=== PATIENT | male | born 1930 | race Caucasian/White ===

== ENCOUNTER 2018-12-17 16:48 | Emergency (ER) | payer MEDICARE, BC ==
[2018-12-17] MEDS ORDERED: Sodium Chloride 0.9% 10 ML Syringe FLUSH PRN (17:46)
[2018-12-17] MEDS ORDERED: Ketorolac 30 MG/ML SDV IVPUSH ONE (17:47)
--- NOTE | 2018-12-17 17:51 | EDM.PDOC ---
ED HPI GENERAL MEDICAL PROBLEM - General Chief Complaint: Lower Extremity Injury/Pain Stated Complaint: MEDICAL [facility]IA [facility] Time Seen by Provider: 12/17/18 17:41 Source of Information: Reports: Patient, Family, RN Notes Reviewed History Limitations: Reports: No Limitations - History of Present Illness INITIAL COMMENTS - FREE TEXT/NARRATIVE: 88-year-old gentleman presents to the emergency department today with complaint of right knee pain, he states he does have a history gout pain has gotten worse over the last 24 hours. His family do give me a slightly different story states he has gotten weaker over the last couple days had difficulty getting into bed last night and spent a portion of the night on his knees next to the bed and then finally slept on the floor until he was found this afternoon and transported by EMS services to the emergency department Right Leg Pain Score (Numeric/FACES): 5 - Related Data Allergies Allergy/AdvReac Type Severity Reaction Status Date / Time No Known Allergies Allergy Verified 12/17/18 16:51 Home Meds: Home Meds Allopurinol [Zyloprim] 100 mg PO DAILY 12/17/18 [History] Finasteride [Proscar] 5 mg PO DAILY 12/17/18 [History] Furosemide [Lasix] 20 mg PO DAILY 12/17/18 [History] Lisinopril 10 mg PO DAILY 12/17/18 [History] Omeprazole 20 mg PO BEDTIME 12/17/18 [History] Pindolol 20 mg PO BID 12/17/18 [History] Pravastatin [Pravachol] 80 mg PO DAILY 12/17/18 [History] Warfarin [Coumadin] 2.5 mg PO ASDIRECTED 12/17/18 [History] Past Medical History HEENT History: Reports: Hard of Hearing, Impaired Vision Cardiovascular History: Reports: Afib, CAD, High Cholesterol, Hypertension, [place] Gastrointestinal History: Reports: GERD Genitourinary History: Reports: Urinary Incontinence Musculoskeletal History: Reports: Gout, Other (See Below) Endocrine/Metabolic History: Reports: Obesity/BMI 30+ Oncologic (Cancer) History: Reports: Basal Cell Carcinoma, Squamous Cell Carcinoma - Past Surgical History Head Surgeries/Procedures: Reports: None HEENT Surgical History: Reports: Cataract Surgery Cardiovascular Surgical History: Reports: Coronary Artery Bypass GI Surgical History: Reports: Cholecystectomy Endocrine Surgical History: Reports: None Musculoskeletal Surgical History: Reports: Hip Replacement Social & Family History - Tobacco Use Smoking Status *Q: Never Smoker Second Hand Smoke Exposure: No - Caffeine Use Caffeine Use: Reports: Coffee - Recreational Drug Use Recreational Drug Use: No Review of Systems - Review of Systems Review Of Systems: See Below Constitutional: Reports: No Symptoms Respiratory: Reports: No Symptoms Cardiovascular: Reports: No Symptoms GI/Abdominal: Reports: No Symptoms Genitourinary: Reports: No Symptoms (Knee pain) Musculoskeletal: Reports: Joint Pain Skin: Reports: No Symptoms Neurological: Reports: No Symptoms ED EXAM, GENERAL - Physical Exam Exam: See Below Free Text/Narrative:: He is tender to palpation over the right hip, will not tolerate any exam to the right knee it is warm to the touch compared to the left knee he does have +2 pitting edema bilaterally however this is a not uncommon Exam Limited By: No Limitations General Appearance: Alert, WD/WN, No Apparent Distress Head: Atraumatic, Normocephalic Neck: Normal Inspection, Supple, Non-Tender, Full Range of Motion Respiratory/Chest: No Respiratory Distress, Lungs Clear, Normal Breath Sounds, No Accessory Muscle Use, Chest Non-Tender Cardiovascular: Regular Rate, Rhythm, No Murmur GI/Abdominal: Soft, Non-Tender Course - Vital Signs Last Recorded V/S: Last Vital Signs Temp 98.7 F 12/17/18 19:21 Pulse 91 12/17/18 19:43 Resp 17 12/17/18 19:21 BP 156/88 H 12/17/18 20:35 Pulse Ox 95 12/17/18 19:43 - Orders/Labs/Meds Labs: Laboratory Tests 12/17/18 12/17/18 12/17/18 Range/Units 18:05 18:05 18:05 WBC 10.0 (4.5-11.0) K/uL RBC 4.60 (4.30-5.90) M/uL Hgb 14.1 (12.0-15.0) g/dL Hct 43.9 (40.0-54.0) % MCV 95 (80-98) fL MCH 31 (27-31) pg MCHC 32 (32-36) % Plt Count 197 (150-400) K/uL Neut % (Auto) 69 H (36-66) % Lymph % (Auto) 17 L (24-44) % [place] % (Auto) 13 H (2-6) % Eos % (Auto) 0 L (2-4) % Baso % (Auto) 0 (0-1) % PT (9.5-12.0) sec INR (0.80-1.20) Sodium 140 (140-148) mmol/L Potassium 4.2 (3.6-5.2) mmol/L Chloride 102 (100-108) mmol/L Carbon Dioxide 28 (21-32) mmol/L Anion Gap 10.4 (5.0-14.0) mmol/L BUN 23 H (7-18) mg/dL Creatinine 1.2 (0.8-1.3) mg/dL Est Cr Clr Drug Dosing 41.96 mL/min Estimated GFR (MDRD) 57 L (>60) Glucose 140 H (74-106) mg/dL Lactic Acid 2.6 H (0.4-2.0) mmol/L Uric Acid (3.5-7.2) mg/dL Calcium 9.4 (8.5-10.1) mg/dL Total Bilirubin 1.6 H (0.2-1.0) mg/dL AST 60 H (15-37) U/L ALT 27 (12-78) U/L Alkaline Phosphatase 68 (46-116) U/L Creatine Kinase (39-308) U/L Troponin I 0.046 (0.000-0.056) ng/mL Total Protein 7.2 (6.4-8.2) g/dL Albumin 3.6 (3.4-5.0) g/dL Globulin 3.6 H (2.3-3.5) g/dL Albumin/Globulin Ratio 1.0 L (1.2-2.2) 12/17/18 12/17/18 12/17/18 Range/Units 18:05 18:05 18:05 WBC (4.5-11.0) K/uL RBC (4.30-5.90) M/uL Hgb (12.0-15.0) g/dL Hct (40.0-54.0) % MCV (80-98) fL MCH (27-31) pg MCHC (32-36) % Plt Count (150-400) K/uL Neut % (Auto) (36-66) % Lymph % (Auto) (24-44) % [place] % (Auto) (2-6) % Eos % (Auto) (2-4) % Baso % (Auto) (0-1) % PT 21.6 H (9.5-12.0) sec INR 2.04 H (0.80-1.20) Sodium (140-148) mmol/L Potassium (3.6-5.2) mmol/L Chloride (100-108) mmol/L Carbon Dioxide (21-32) mmol/L Anion Gap (5.0-14.0) mmol/L BUN (7-18) mg/dL Creatinine (0.8-1.3) mg/dL Est Cr Clr Drug Dosing mL/min Estimated GFR (MDRD) (>60) Glucose (74-106) mg/dL Lactic Acid (0.4-2.0) mmol/L Uric Acid 7.9 H (3.5-7.2) mg/dL Calcium (8.5-10.1) mg/dL Total Bilirubin (0.2-1.0) mg/dL AST (15-37) U/L ALT (12-78) U/L Alkaline Phosphatase (46-116) U/L Creatine Kinase 1633 H (39-308) U/L Troponin I (0.000-0.056) ng/mL Total Protein (6.4-8.2) g/dL Albumin (3.4-5.0) g/dL Globulin (2.3-3.5) g/dL Albumin/Globulin Ratio (1.2-2.2) Meds: Medications Discontinued Medications Generic Name Dose Route Start Last Admin Trade Name Freq PRN Reason Stop Dose Admin Lactated Ringer's 1,000 mls @ 500 mls/hr 12/17/18 18:00 12/17/18 18:02 Ringers, Lactated IV 500 mls/hr ASDIRECTED OMID Administration Ketorolac Tromethamine 15 mg 12/17/18 17:47 12/17/18 18:29 Toradol IVPUSH 12/17/18 17:48 15 mg ONETIME ONE Administration Sodium Chloride 10 ml 12/17/18 17:46 12/17/18 18:02 Saline Flush FLUSH 10 ml ASDIRECTED PRN Administration Keep Vein Open Departure - Departure Time of Disposition: 07:07 Disposition: DC/Tfer to Acute Hospital 02 Condition: Poor Clinical Impression: Weakness - Discharge Information Referrals: Jett Cline MD [Primary Care Provider] - Forms: ED Department Discharge
[2018-12-17] MEDS ORDERED: Lactated Ringers 1,000 ML IV SCH (18:00)
--- NOTE | 2018-12-17 18:51 | CRLCR ---
INDICATION: Pain after fall. TECHNIQUE: Three views pelvis and right hip. IMPRESSION: Right bipolar total hip arthroplasty. Anatomic alignment without fracture. No periprosthetic loosening of significance. Prominent atherosclerotic calcification. 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 Dictated by Michael Serrato MD @ Dec 17 2018 6:48PM Signed by Dr. Michael Serrato @ Dec 17 2018 6:49PM
--- NOTE | 2018-12-17 18:51 | CRLCR ---
INDICATION: Pain after fall. TECHNIQUE: Three views right knee. IMPRESSION: Small effusion in the suprapatellar recess. Low-grade 1 osteoarthritis in all 3 compartments. Prominent atherosclerosis. No acute fracture or traumatic malalignment. Dictated by Michael Serrato MD @ Dec 17 2018 6:50PM Signed by Dr. Michael Serrato @ Dec 17 2018 6:50PM
--- NOTE | 2018-12-17 19:54 | CRLCT ---
HISTORY: Fall. TECHNIQUE: Noncontrast head CT. COMPARISON: No prior. FINDINGS: There is no acute intracranial hemorrhage or acute ischemic infarct. Mild generalized volume loss. Areas of white matter low attenuation are nonspecific but likely reflect sequelae of chronic small vessel ischemic changes. There is no mass-effect or midline shift. No hydrocephalus. No extra-axial collection or hematoma. The mastoid air cells are clear. Paranasal sinuses are clear. No acute skull fracture. IMPRESSION: 1. No acute intracranial injury or disease. 2. Mild generalized volume loss. 3. Chronic small vessel ischemic changes. Dictated by Jimmy Campa MD @ 12/17/2018 7:53:06 PM Please note that all CT scans at this facility use dose modulation, iterative reconstruction, and/or weight-based dosing when appropriate to reduce radiation dose to as low as reasonably achievable. Dictated by: Jimmy Campa MD @ 12/17/2018 19:53:13 (Electronically Signed)
== END 2018-12-17 20:44 ==
LOC: JP.ED 16:48
DX: M62.81 Muscle weakness (generalized) (principal); I48.91 Unspecified atrial fibrillation; I25.10 Atherosclerotic heart disease of native coronary artery without angina pectoris; E78.00 Pure hypercholesterolemia, unspecified; I25.2 Old myocardial infarction; Z95.1 Presence of aortocoronary bypass graft; Z79.899 Other long term (current) drug therapy
CPT/HCPCS: 36415; 70450; 73502; 73562; 80053; 82550; 83605; 84484; 84550; 85025; 85610; 96361; 96374; 99284; J1885; J7120